=== PATIENT | female | born 1985 | race Caucasian/White ===

== ENCOUNTER 2016-10-13 18:05 | Emergency (ER) | payer SELFPAY ==
[~2016-10-13] VITALS: Ht 165.1 cm; Wt 99.8 kg
[~2016-10-13 18:05] MED LIST: ACHD5005 PO; CPR500T PO; CYCL10TA9 PO; DOCU100C37 PO; FERR-74 PO; HYDR-3812 PO; IBUP-1773 PO; NAPR-243 PO; ONDA-42 SL; PRM25T PO
[2016-10-13 18:36] VITALS: BP 150/95
== END 2016-10-13 18:33 | disposition left against medical advice (07) ==
LOC: EDUNIT# 18:05 → ER 18:07
DX: S60.511A Abrasion of right hand, initial encounter (principal); S00.412A Abrasion of left ear, initial encounter; Z53.21 Procedure and treatment not carried out due to patient leaving prior to being seen by health care provider; Y04.8XXA Assault by other bodily force, initial encounter; Y92.810 Car as the place of occurrence of the external cause; Y99.8 Other external cause status
CPT/HCPCS: 99283